=== PATIENT | male | born 1970 | race Caucasian/White ===

== ENCOUNTER 2016-07-17 05:00 | Inpatient (IN) | payer OTHER ==
--- NOTE | ~2016-07-17 | DS ---
Unit #: [id number] #: [id number] Patient: JONATAN CRESPO [id number] [facility] [place] [address] [id number] I MR#: [id number] NAME: JONATAN CRESPO. ROOM: [facility] Age: 46 Sex: M Admission Date: 07/17/2016 : 1970 Discharge Date: 07/22/2016 Attending Physician: John Whitaker M.D. Primary Care Physician: Primary Care Physician No DISCHARGE SUMMARY IDENTIFYING DATA Mr. Crespo is a 46-year-old white male, who is a resident of [place], [place], and was transferred to us from [facility] on a voluntary basis. DISCHARGE DIAGNOSES Psychiatric: Alcohol dependence, moderate and acute withdrawals; alcohol-induced mood disorder. Medical: None. Stressors: Mild psychosocial stressors. HISTORY OF PRESENT ILLNESS Please see initial psychiatric evaluation for details. PAST PSYCHIATRIC HISTORY Please see initial psychiatric evaluation for details. PAST MEDICAL HISTORY Please see initial psychiatric evaluation for details. HOSPITAL COURSE The patient was admitted to the adult chemical dependency unit at [facility] janell [facility] and was oriented to the hospital environment. Routine p.r.n. medications were initiated, and he was started on the detox protocol and was closely monitored. He was taking the medications regularly and was tolerating them fairly well and was able to show a decent and therapeutic response with improvement in depression and anxiety and was willing to continue treatment on an outpatient basis and as such, it was decided that he will be discharged home and will continue treatment on an outpatient basis. DISCHARGE MEDICATIONS None. DISCHARGE CONDITION Stable. PROGNOSIS Fair. Dictated by... John Whitaker M.D. Unit #: [id number] #: [id number] Patient: JONATAN CRESPO IAA/modl TD: 07/22/2016 23:30 JOB #: [id number] DISCHARGE SUMMARY Page 1 of 1 X John Whitaker MD X DISCHARGE SUMMARY
--- NOTE | ~2016-07-17 | PN ---
Unit #: [id number] #: [id number] Patient: JONATAN CRESPO [id number] [facility] [address] [place] [address] [id number] I MR#: [id number] NAME: JONATAN CRESPO. ROOM: P212 Age: 46 Sex: M Admission Date: 07/17/2016 : 1970 Attending Physician: John Whitaker M.D. Admitting Physician: John Whitaker M.D. Primary Care Physician: Primary Care Physician Aneta TILLEY PROGRESS NOTES DATE 07/18/2016 DISCUSSION Mr. Crespo is a 46-year-old, white male who was seen today and chart was reviewed and case was discussed with the staff. He has been anxious, withdrawn and rather seclusive to himself. Meanwhile, he has been cooperative with treatment recommendations and appears to be in distress and discomfort. However, has not shown any agitation or aggression. MENTAL STATUS EXAM Middle-aged white male who was casually dressed with fair personal hygiene, appears to be in no acute distress or discomfort. He was awake and alert on interaction with intact orientation. His mood was anxious with congruent affect. He denies any suicidal or homicidal ideation. His insight and judgement remains slightly impaired. TREATMENT PLAN 1. We will continue him on his current medications and treatment protocol. We will monitor his response to the medication and make further adjustments as needed. 2. We will continue to follow up. Dictated by... Tiffany Cesar/bashir TD: 07/20/2016 02:55 JOB #: [id number] Unit #: [id number] #: [id number] Patient: JONATAN CRESPO JAREK PROGRESS NOTES Page 1 of 1 X John Whitaker MD PROGRESS NOTE
--- NOTE | ~2016-07-17 | PN ---
Unit #: [id number] #: [id number] Patient: JONATAN CRESPO [id number] [facility] [address] [place] [address] [id number] MR#: [id number] NAME: JONATAN CRESPO. ROOM: P212 Age: 46 Sex: M Admission Date: 07/17/2016 : 1970 Attending Physician: John Whitaker M.D. Admitting Physician: John Whitaker M.D. Primary Care Physician: Primary Care Physician Aneta TILLEY PROGRESS NOTES DATE 07/21/2016 DISCUSSION Mr. Crespo is a 46-year-old, white male who was seen today and chart was reviewed and case was discussed with the staff. He has been doing fairly well and appears to be making improvement in his detox and reports he is better than yesterday. Meanwhile, he has been taking the medication and tolerating them fairly well with no reported side effects. MENTAL STATUS EXAM Young white male who was casually dressed with fair personal hygiene, appears to be in no acute distress or discomfort. He was awake and alert on interaction with intact orientation. His mood was anxious with congruent affect. He denies any suicidal or homicidal ideation. Also, denies any auditory or visual hallucinations. His insight and judgement remains slightly impaired. TREATMENT PLAN 1. We will continue him on his current medications and treatment protocol. We will monitor his response and make further adjustments as needed. 2. We will continue to follow up. Dictated by... Tiffany Cesar/bashir TD: 07/22/2016 03:18 JOB #: [id number] Unit #: [id number] #: [id number] Patient: JONATAN CRESPO PROGRESS NOTES Page 1 of 1 X John Whitaker MD PROGRESS NOTE
--- NOTE | ~2016-07-17 | PN ---
Unit #: [id number] #: [id number] Patient: JONATAN CRESPO [id number] [facility] [address] [place] [address] [id number] MR#: [id number] NAME: JONATAN CRESPO. ROOM: [facility] Age: 46 Sex: M Admission Date: 07/17/2016 : 1970 Attending Physician: John Whitaker M.D. Admitting Physician: John Whitaker M.D. Primary Care Physician: Primary Care Physician Aneta ROCA NOTES DATE July 19, 2016 DISCUSSION Mr. Crespo is a 46-year-old white male, who was seen today and chart was reviewed and the case was discussed with the staff. He has been anxious, withdrawn, and rather seclusive to himself. Meanwhile, he has been cooperative with the treatment recommendations and he has been taking the medications and tolerating them fairly well with no reported side effects. MENTAL STATUS EXAMINATION Young white male, who was casually dressed with fair personal hygiene and appears to be in no acute distress or discomfort. He was awake and alert on interaction with intact orientation. His mood is anxious with a congruent affect. He denies any suicidal or homicidal ideations. His insight and judgment remain slightly impaired. TREATMENT PLAN 1. We will continue him on his current medications and treatment protocol, and will monitor his response to the medications, and make further adjustments as needed. 2. We will continue to followup. Dictated by... Tiffany Cesar/paige TD: 07/20/2016 09:46 JOB #: [id number] Unit #: [id number] #: [id number] Patient: JONATAN CRESPO JAREK PROGRESS NOTES Page 1 of 1 X John Whitaker MD PROGRESS NOTE
--- NOTE | ~2016-07-17 | PA ---
Unit #: [id number] #: [id number] Patient: JONATAN CRESPO [id number] [facility] [address] [place] [address] [id number] I MR#: [id number] NAME: JONATAN CRESPO. ROOM: [facility] Age: 46 Sex: M Admission Date: 07/17/2016 : 1970 Date of Assessment: Attending Physician: John Whitaker M.D. Admitting Physician: John Whitaker M.D. PSYCHIATRIC ASSESSMENT DATE OF SERVICE 07/17/2016. IDENTIFYING DATA Mr. Crespo is a 46-year-old, white male who is a resident of [place], [place] and was transferred to from [facility] on a voluntary basis. CHIEF COMPLAINT "I'm homeless and I became depressed, and I've been drinking a fifth of vodka daily." HISTORY OF PRESENT ILLNESS Mr. Crespo is a 46-year-old white male who was self-referred to the hospital after he took himself to [facility] reporting increasing depression, and having poor social support system, being homeless and having extensive history of alcohol dependence, and reports that he has been drinking a fifth of vodka a day to help with his depression, but has not been functioning and reports he lost his mother, his left him 4 years ago, and he has no money and he has history of gastric bypass and kidney stones and has been homeless and has poor social support system. He now reports increasing depression, anxiety, restlessness, feelings of hopelessness and helplessness, and suicidal ideations and as such, recommendation for inpatient level of care for safety and stabilization was made, and he was transferred to us. SUBSTANCE ABUSE HISTORY The patient reports history of alcohol dependence and has been drinking most of his life and currently has been drinking a fifth of vodka a day and denies any other drug abuse. PAST PSYCHIATRIC HISTORY The patient has not had any prior inpatient or outpatient psychiatric or chemical dependency treatment. Review of the medical records indicate that currently he is not active in any treatment program, is not seeing a psychiatrist, and not taking any psychotropic medications. PAST MEDICAL HISTORY No acute or chronic medical illnesses. ALLERGIES Sulfa, NSAIDs, morphine, steroid. Unit #: [id number] #: [id number] Patient: JONATAN CRESOP PERSONAL AND SOCIAL HISTORY A 46-year-old white male who reports that he is and single, and unemployed, and has poor social support system. MENTAL STATUS EXAMINATION Middle-aged white male who was casually dressed with fair personal hygiene, appears to be in no acute distress or discomfort. He was awake and alert on interaction with intact orientation to time, place, and person. His mood was anxious and depressed with a congruent affect. His speech was slow and restricted in content. His thought processes were disorganized with some looseness of associations and suicidal ideations. His insight and judgment remain significantly impaired. DIAGNOSTIC IMPRESSION Psychiatric: Alcohol dependence, moderate and acute withdrawal; alcohol-induced mood disorder. Medical: None. Stressors: Moderate psychosocial stressors. TREATMENT PLAN 1. The patient has presented with history of mood disorder and substance abuse and dependence and has been decompensating and will need inpatient hospitalization for detoxification, and safety, and stabilization. We will start him back on his home medications. We will also initiate alcohol detox protocol. 2. Supportive therapy was provided to the patient. 3. Safe, structured, and nourishing environment will be provided. ESTIMATED LENGTH OF STAY 4 to 5 days. ABILITY TO HELP SELF Limited. WILLINGNESS TO HELP SELF The patient appears to be willing to help self. STRENGTHS 1. Communicative. 2. Cooperative. PROBLEMS 1. Chronic chemical dependency. 2. Chronic dysphoric symptoms. 3. Poor social support system. DISCHARGE CRITERIA This will be contingent upon the patient's ability to go through detox without having any significant withdrawal symptoms and his ability to stay safe to himself, particularly after discharge from the hospital. Dictated by... Tiffany Cesar/johanna TD: 07/18/2016 10:36 Unit #: [id number] #: [id number] Patient: JONATAN CRESPO JOB #: [id number] PSYCHIATRIC ASSESSMENT Page 1 of 1 X John Whitaker MD X PSYCHIATRIC ASSESSMENT
--- NOTE | ~2016-07-17 | PN ---
Unit #: [id number] #: [id number] Patient: JONATAN CRESPO [id number] [facility] [address] [place] [address] [id number] I MR#: [id number] NAME: JONATAN CRESPO. ROOM: [facility] Age: 46 Sex: M Admission Date: 07/17/2016 : 1970 Attending Physician: John Whitaker M.D. Admitting Physician: John Whitaker M.D. Primary Care Physician: Primary Care Physician Aneta ROCA NOTES DATE OF SERVICE: 07/20/2016 SUBJECTIVE Mr. Crespo is a 46-year-old white male, who was seen today and chart was reviewed and case was discussed with the staff. He has been anxious, withdrawn, rather seclusive to himself. Meanwhile, he has been cooperative with treatment recommendation and appears to be in no distress or discomfort, as he is actively detoxing and has not been able to get out of his bed and do activities of daily living, however, he has been polite and pleasant and cooperative with treatment recommendations. MENTAL STATUS EXAMINATION Middle-aged white male, who was casually dressed with fair personal hygiene, appears to be in no acute distress or discomfort. He was awake and alert on interaction with intact orientation. His mood was anxious with a congruent affect. He denies any suicidal or homicidal ideations, and also denies any auditory or visual hallucinations. His insight and judgment remain slightly impaired. TREATMENT PLAN 1. We will continue on his current medications and treatment protocol. We will monitor his response to the medications and make further adjustments as needed. 2. We will continue to follow up. Dictated by... Tiffany Cesar/jaclynl TD: 07/21/2016 02:09 JOB #: [id number] Unit #: [id number] #: [id number] Patient: JONATAN CRESPO JAREK ROCA NOTES Page 1 of 1 X John Whitaker MD PROGRESS NOTE
--- NOTE | ~2016-07-17 | HP ---
Unit #: [id number] #: [id number] Patient: JONATAN NORWOOD [id number] [place] [address] [id number] MR#: [id number] NAME: JONATAN NORWOOD. ROOM: [facility] Age: 46 Sex: M Admission Date: 07/17/2016 : 1970 Attending Physician: John Whitaker M.D. Admitting Physician: John Whitaker M.D. Primary Care Physician: Primary Care Physician No HISTORY AND PHYSICAL HISTORY OF PRESENT ILLNESS The patient is a 46-year-old male admitted to [address] [place] [address] on 07/17/2016 to detox from alcohol. PAST MEDICAL HISTORY 1. Alcohol abuse. 2. Depression. 3. Kidney stones. PAST SURGICAL HISTORY 1. Gastric bypass. 2. Cholecystectomy. 3. Right elbow surgery. ALLERGIES Morphine, aspirin, prednisone, ibuprofen, butorphanol and valdecoxib. SOCIAL HISTORY He is unemployed and homeless. He drinks a fifth of vodka per day. FAMILY HISTORY Noncontributory. REVIEW OF SYSTEMS CONSTITUTIONAL: No fever or chills. HEENT: Denies any sore throat, ear pain or runny nose. CARDIOVASCULAR: Denies chest pain, irregular heart rhythm or palpitations. CHEST: Denies shortness of breath or cough. No hemoptysis. GASTROINTESTINAL: Denies nausea, vomiting, diarrhea or chronic constipation. ENDOCRINE: Denies history of increased thirst or urination. No recent significant weight loss or gain. GENITOURINARY: Denies dysuria, frequency, or hematuria. SKIN: Denies any rashes. HEMATOLOGIC: Denies history of increased bleeding or bruising. MUSCULOSKELETAL: Denies any hot, swollen joints. No generalized muscle pain. NEUROLOGIC: Denies problems with vision or speech. No frequent, severe headaches. No numbness, tingling or weakness in any extremities. Denies loss of bladder or bowel control. CURRENT MEDICATIONS Patient is not on any home medications. Unit #: [id number] #: [id number] Patient: JONATAN NORWOOD PHYSICAL EXAMINATION GENERAL: He is awake, alert, oriented, in no acute distress. VITAL SIGNS: Temperature 97.6, heart rate 90, respirations 18, blood pressure 145/71. HEIGHT: 5 feet 11. WEIGHT: 190 pounds. SKIN: Warm and dry without rash or lesion. HEENT: Normocephalic. TMs not viewed. Oral and nasal passages clear. Conjunctivae clear. PERRLA. EOMs intact. NECK: Supple without lymphadenopathy or thyromegaly. HEART: Regular rate and rhythm without murmur. LUNGS: Clear. ABDOMEN: Soft, nontender. : Not done. EXTREMITIES: No evidence of cyanosis, clubbing or edema. Moves all without focal deficit. NEUROLOGICAL: Grossly within normal limits. Cranial Nerves: II: Visual garcia are intact. III, IV AND : Extraocular movements are intact. Pupils are equal, round and reactive to light. V: Facial sensation is grossly normal. VII: Facial movements and expression are normal. VIII: Auditory acuity grossly intact. IX, X: Uvula is midline. Phonation is normal. XI: Patient shrugs shoulders and turns head normally. XII: Tongue protrudes in the midline. Sensory and Motor Function: Sensory and motor sensation is grossly normal. Motor: moves all extremities well. Coordination: Gait is normal. Deep Tendon Reflexes: Intact. IMPRESSION 1. Psychiatric admission. 2. Alcohol dependence. 3. History of kidney stones. RECOMMENDATIONS PSYCHIATRIC: Per psychiatrist. MEDICAL: No contraindications to participate in facility's activities. MEDICAL PROGNOSIS Good. MEDICAL CONDITION Stable. Dictated by... Nkechi Hernandez/yesi TD: 07/17/2016 18:20 JOB #: [id number] Unit #: [id number] #: [id number] Patient: JONATAN NORWOOD HISTORY AND PHYSICAL Page 1 of 1 X SHASHANK LAMA APRN HISTORY AND PHYSICAL
[2016-07-22 10:03] LABS: URINE APPEARANCE CLEAR; URINE BILIRUBIN NEG (NEG); URINE BLOOD NEG (NEG); URINE COLOR DK YELLOW; URINE GLUCOSE NEG (NEG); URINE KETONE NEG (NEG); URINE LEUKOCYTE ESTERASE NEG (NEG); URINE NITRATE NEG (NEG); URINE PROTEIN NEG (NEG); URINE SPECIFIC GRAVITY 1.015 (1.003-1.035)
[2016-07-22 10:59] LABS: AMPHETAMINE NEG (NEG); BARBITURATES NEG (NEG); BENZODIAZEPINES POS (NEG); COCAINE NEG (NEG); MARIJUANA NEG (NEG); OPIATES NEG (NEG); TRICYCLIC ANTIDEPRESSANTS NEG (NEG); U METHADONE NEG (NEG)
== END 2016-07-22 15:37 | disposition home or self-care (01) | DRG 897 ==
LOC: P2S 09:59
PROVIDERS: Psychiatry & Neurology Psychiatry
PROC: HZ2ZZZZ Detoxification Services for Substance Abuse Treatment (ICD-10-PCS; principal; 2016-07-17)
DX: F10.239 Alcohol dependence with withdrawal, unspecified (principal); F10.24 Alcohol dependence with alcohol-induced mood disorder; Z87.442 Personal history of urinary calculi; Z59.0 Homelessness
CPT/HCPCS: 80307; 81003; 86592